=== PATIENT | female | born 1935 | race Caucasian/White ===

== ENCOUNTER 2022-01-04 12:12 | Emergency (ER) | payer MEDICARE ==
[~2022-01-04] VITALS: Ht 154.9 cm; Wt 67.1 kg
[~2022-01-04 12:12] MED LIST: ALEN70 PO; AMLO10 PO; BLOOD PRESSURE MEDS; CHOL10002 PO; Geritol Comple1 EACH PO; HYDCHL12.5 PO; LOSA50 PO; METO50ER PO; Norco 5-325 Ta1 EACH PO; POTCHL20ER PO
== END 2022-01-04 14:56 | disposition home or self-care (01) ==
LOC: ER 12:12
DX: J95.862 Postprocedural seroma of a respiratory system organ or structure following a respiratory system procedure (principal); Y83.8 Other surgical procedures as the cause of abnormal reaction of the patient, or of later complication, without mention of misadventure at the time of the procedure; I10 Essential (primary) hypertension; Z87.891 Personal history of nicotine dependence; Z90.13 Acquired absence of bilateral breasts and nipples
CPT/HCPCS: 76604

== ENCOUNTER 2022-09-21 15:36 | Inpatient (IN) | payer MEDICARE ==
[~2022-09-21] VITALS: Ht 157.5 cm; Wt 63.1 kg
[~2022-09-21 15:36] MED LIST changes: +ASCO500 PO; +Aspir 8181 MG PO; +Dexamethasone4 MG PO; +Hydroxychloroq200 MG PO; +MIRALAX119 G2 PO; +SENN187 PO
[2022-09-21 16:59] LABS: BASOPHILS ABSOLUTE AUTO 0.02 K/mm3 (0.00-0.23); BASOPHILS PERCENT AUTO 0 % (0-2); EOSINOPHILS ABSOLUTE AUTO 0.02 K/mm3 (0.00-0.68); EOSINOPHILS PERCENT AUTO 0 % (0-6); Hematocrit 24.3 % (33.0-51.0); Hemoglobin 7.3 g/dL (11.5-16.0); IMMATURE GRAN ABSOLUTE AUTO 0.11 K/mm3 (0.00-0.10); IMMATURE GRAN PERCENT AUTO 1 % (0-1); LYMPHOCYTES ABSOLUTE AUTO 1.33 K/mm3 (0.84-5.20); LYMPHOCYTES PERCENT AUTO 12 % (21-46); MONOCYTES ABSOLUTE AUTO 0.27 K/mm3 (0.16-1.47); MONOCYTES PERCENT AUTO 2 % (4-13); Mean Corpuscular HGB 27.8 pg (26.0-34.0); Mean Corpuscular Volume 92 fL (80-100); Mean Platelet Volume 8.9 fL (9.1-12.4); NEUTROPHILS ABSOLUTE AUTO 9.76 K/mm3 (1.96-9.15); NEUTROPHILS PERCENT AUTO 85 % (41-73); NRBC ABSOLUTE 0.02 K/mm3 (0.00-0.02); NRBC Auto 0.2 /100 WBC (0.0-0.2); Platelet Count 248 K/mm3 (150-400); RDW Coefficient Variation 15.8 % (11.7-14.2); RDW Standard Deviation 52.7 fL (35.1-46.3); Red Blood Cell Count 2.63 M/mm3 (3.80-5.20); White Blood Cell Count 11.51 K/mm3 (4.00-11.30)
[2022-09-21 17:10] LABS: Magnesium, Blood 2.5 mg/dL (1.6-2.4)
[2022-09-21 17:12] LABS: Alanine Aminotransfer (ALT/SGP 18 U/L (12-78); Albumin, Blood 2.6 g/dL (3.4-5.0); Albumin/Globulin Ratio 0.8 (0.8-1.8); Alk Phos 56 U/L (50-136); Anion Gap 8 mmol/L (6-16); Aspartate Aminotrans (AST/SGOT 15 U/L (12-37); Bilirubin, Total <0.1 mg/dL (0.1-1.0); Blood Urea Nitrogen 30 mg/dL (8-24); Bun/Creatinine Ratio 43.7 (12.0-20.0); CO2, Blood 25 mmol/L (21-32); Calcium, Blood 9.1 mg/dL (8.5-10.1); Chloride, Blood 110 mmol/L (98-108); Creatinine, Blood 0.69 mg/dL (0.40-1.00); Globulin, Blood 3.1 g/dL (2.2-4.0); Glomerular Filtration Rate 83 (60-); Glucose, Blood 120 mg/dL (70-99); Potassium, Blood 3.8 mmol/L (3.5-5.5); Sodium, Blood 143 mmol/L (136-145); Total Protein, Blood 5.7 g/dL (6.4-8.2)
[2022-09-21 20:02] LABS: International Normalized Ratio 0.96; Prothrombin Time Results 10.1 Sec (9.7-11.5)
[2022-09-21] MEDS ORDERED: OMEP20ER PO (21:24)
[2022-09-21] MEDS ORDERED: PANT40 PO (21:25)
[2022-09-21] MEDS ORDERED: NYSTOP15 GM TOP (21:26)
[2022-09-21 22:15] VITALS: BP 164/63
[2022-09-22 01:54] LABS: Bun/Creatinine Ratio 36.5 (12.0-20.0); Calcium, Blood 8.3 mg/dL (8.5-10.1); Creatinine, Blood 0.58 mg/dL (0.40-1.00); Magnesium, Blood 2.1 mg/dL (1.6-2.4)
[2022-09-22 02:15] LABS: Hemoglobin 7.5 g/dL (11.5-16.0); NRBC ABSOLUTE 0.02 K/mm3 (0.00-0.02); NRBC Auto 0.2 /100 WBC (0.0-0.2)
[2022-09-22 02:21] LABS: BASOPHILS ABSOLUTE AUTO 0.03 K/mm3 (0.00-0.23); BASOPHILS PERCENT AUTO 0 % (0-2); EOSINOPHILS ABSOLUTE AUTO 0.19 K/mm3 (0.00-0.68); EOSINOPHILS PERCENT AUTO 2 % (0-6); Hematocrit 24.5 % (33.0-51.0); IMMATURE GRAN ABSOLUTE AUTO 0.11 K/mm3 (0.00-0.10); IMMATURE GRAN PERCENT AUTO 1 % (0-1); LYMPHOCYTES ABSOLUTE AUTO 1.85 K/mm3 (0.84-5.20); LYMPHOCYTES PERCENT AUTO 19 % (21-46); MONOCYTES ABSOLUTE AUTO 0.49 K/mm3 (0.16-1.47); MONOCYTES PERCENT AUTO 5 % (4-13); Mean Corpuscular HGB Conc 30.6 g/dL (31.5-36.5); Mean Corpuscular Volume 91 fL (80-100); Mean Platelet Volume 9.1 fL (9.1-12.4); NEUTROPHILS ABSOLUTE AUTO 7.35 K/mm3 (1.96-9.15); NEUTROPHILS PERCENT AUTO 73 % (41-73); Platelet Count 250 K/mm3 (150-400); RDW Coefficient Variation 15.4 % (11.7-14.2); RDW Standard Deviation 51.3 fL (35.1-46.3); Red Blood Cell Count 2.68 M/mm3 (3.80-5.20); White Blood Cell Count 10.02 K/mm3 (4.00-11.30)
[2022-09-22 03:43] VITALS: BP 160/69
--- NOTE | 2022-09-22 03:45 | NUR ---
CALL FROM TELEMETRY AT ABOUT 0330 THAT PT DIPPED DOWN TO ABOUT ~39 BPM FOR SEVERAL BEATS. PT SLEEPING IN BED AT TIME. CALL AGAIN A FEW MINUTES LATER THAT PT WAS DOWN TO 37 BPM. PT WAS SLEEPING PEACEFULLY AT THE TIME. WOKE HER UP, TOOK SET OF VITALS. ALL VITALS WNL, HR AT ~52 BPM. PT DENIED ANY PAIN AND REPORTED BEING COMFORTABLE AT THE TIME. REMAINS PLEASANT, MENTATION UNCHANGED. WILL CONTINUE TO MONITOR.
--- NOTE | 2022-09-22 04:43 | NUR ---
PT ARRIVED ON UNIT EARLY IN SHIFT. EXCEEDINGLY PLEASANT, AOX2-3. COOPERATIVE WITH CARE. STEADY 1-PERSON ASSIST WITH GAIT BELT. RISK OF SYNCOPAL EPISODE REQUIRING SLOW PACE AND EXTRA CAUTION ALTHOUGH PT HAS HABIT OF WALKING VERY QUICKLY. PT HAS HAD KVO NS RUNNING THROUGH CENTRAL PORT THROUGHOUT THE MORNING. DOES NOT DRAW BLOOD. HAS CONTINUED TO DENY ANY FORM OF PAIN OUTSIDE OF MILD HEADACHE WHICH WAS ALLEVIATED WITH TYLENOL. TELE ON. 1 EVENT OF BRADYCARDIA EARLY THIS MORNING, SEE RELATED NOTE FOR DETAILS. SHIFT HAS OTHERWISE BEEN UNREMARKABLE. PT IS COMFORTABLE IN BED AND HAS SLEPT THROUGH MOST OF SHIFT. BED LOCKED IN LOWEST POSITION. CALL LIGHT LEFT WITHIN REACH.
--- NOTE | 2022-09-22 05:52 | NUR ---
AT 0548 CALL FROM TELE THAT PT HAD PAUSE ON TELE THAT LASTED 2.03 SECONDS. WOKE PT WHO WAS SLEEPING. TOTALLY ASYMPTOMATIC. PT FEELS RELAXED, HAS BEEN SLEEPING PEACEFULLY. SPOKE BRIEFLY WITH EMILY CARSON RN ABOUT THIS EVENT + BRIEF EPISODES OF ASCENCION THIS MORNING. NO NEED FOR FURTHER ACTION AT THIS TIME. WILL CONTINUE TO MONITOR.
[2022-09-22 07:30] LABS: BASOPHILS ABSOLUTE AUTO 0.02 K/mm3 (0.00-0.23); BASOPHILS PERCENT AUTO 0 % (0-2); EOSINOPHILS ABSOLUTE AUTO 0.26 K/mm3 (0.00-0.68); EOSINOPHILS PERCENT AUTO 3 % (0-6); Hematocrit 23.3 % (33.0-51.0); Hemoglobin 7.1 g/dL (11.5-16.0); IMMATURE GRAN ABSOLUTE AUTO 0.08 K/mm3 (0.00-0.10); IMMATURE GRAN PERCENT AUTO 1 % (0-1); LYMPHOCYTES ABSOLUTE AUTO 1.55 K/mm3 (0.84-5.20); LYMPHOCYTES PERCENT AUTO 17 % (21-46); MONOCYTES ABSOLUTE AUTO 0.47 K/mm3 (0.16-1.47); MONOCYTES PERCENT AUTO 5 % (4-13); Mean Corpuscular HGB 27.6 pg (26.0-34.0); Mean Corpuscular HGB Conc 30.5 g/dL (31.5-36.5); Mean Corpuscular Volume 91 fL (80-100); Mean Platelet Volume 8.6 fL (9.1-12.4); NEUTROPHILS ABSOLUTE AUTO 6.86 K/mm3 (1.96-9.15); NEUTROPHILS PERCENT AUTO 74 % (41-73); NRBC ABSOLUTE 0.02 K/mm3 (0.00-0.02); NRBC Auto 0.2 /100 WBC (0.0-0.2); Platelet Count 234 K/mm3 (150-400); RDW Coefficient Variation 15.3 % (11.7-14.2); RDW Standard Deviation 50.3 fL (35.1-46.3); Red Blood Cell Count 2.57 M/mm3 (3.80-5.20); White Blood Cell Count 9.24 K/mm3 (4.00-11.30)
[2022-09-22] MEDS ORDERED: DECADRON4 M1 PO (08:24)
[2022-09-22 08:34] VITALS: BP 175/76
[2022-09-22 12:16] LABS: Percent Saturation 6.2 % (15.0-50.0)
[2022-09-22 13:09] LABS: Source, Urine Clean Catch
[2022-09-22 13:12] LABS: Hematocrit 25.6 % (33.0-51.0); Hemoglobin 7.8 g/dL (11.5-16.0)
[2022-09-22 13:23] LABS: Appearance, Urine Clear (Clear); Bilirubin, Urine Neg (Neg); Blood, Urine Neg (Neg); Color, Urine Yellow (P-Yellow); Glucose Qualitative, Urine Neg (Neg); Ketones, Urine Neg (Neg); Leukocyte Esterase, Urine Neg (Neg); Nitrite, Urine Neg (Neg); Protein, Urine Neg (Neg); Urobilinogen, Urine NORM (Normal); pH, Urine 6.5 (5.0-8.0)
[2022-09-22 17:42] VITALS: BP 147/62
--- NOTE | 2022-09-22 18:09 | NUR ---
DAYSHIFT SUMMARY Patient c/o severe pain d/t migrain & reported sharp pain behind right eye. Tylenol ineffective, Oxycodone effective for pain. Patient sleeping most of the day. Patient did work with therapy today. No bleeding noted in urine or stool today. Vitals stable, no other concerns at this time. Will continue plan of care.
[2022-09-22 20:30] VITALS: BP 145/50
--- NOTE | 2022-09-23 03:53 | NUR ---
SHIFT HAS BEEN UNREMARKABLE. PT MEDICATED FOR HEADACHE EARLY THIS MORNING. OTHERWISE HAS BEEN SLEEPING IN BED COMFORTABLY. KVO NS RUNNING THROUGH CENTRAL PORT THROUGHOUT SHIFT. STEADY 1-PERSON ASSIST TO BATHROOM. EXCEEDINGLY PLEASANT AND COOPERATIVE WITH CARE. BED LOCKED IN LOWEST POSITION. CALL LIGHT LEFT WITHIN REACH.
[2022-09-23 05:23] VITALS: BP 181/76
[2022-09-23 05:45] LABS: BASOPHILS ABSOLUTE AUTO 0.02 K/mm3 (0.00-0.23); BASOPHILS PERCENT AUTO 0 % (0-2); EOSINOPHILS ABSOLUTE AUTO 0.15 K/mm3 (0.00-0.68); EOSINOPHILS PERCENT AUTO 1 % (0-6); Hematocrit 23.4 % (33.0-51.0); Hemoglobin 7.4 g/dL (11.5-16.0); IMMATURE GRAN ABSOLUTE AUTO 0.12 K/mm3 (0.00-0.10); IMMATURE GRAN PERCENT AUTO 1 % (0-1); LYMPHOCYTES ABSOLUTE AUTO 1.83 K/mm3 (0.84-5.20); LYMPHOCYTES PERCENT AUTO 18 % (21-46); MONOCYTES ABSOLUTE AUTO 0.45 K/mm3 (0.16-1.47); MONOCYTES PERCENT AUTO 4 % (4-13); Mean Corpuscular HGB 28.1 pg (26.0-34.0); Mean Corpuscular HGB Conc 31.6 g/dL (31.5-36.5); Mean Corpuscular Volume 89 fL (80-100); NEUTROPHILS ABSOLUTE AUTO 7.84 K/mm3 (1.96-9.15); NEUTROPHILS PERCENT AUTO 75 % (41-73); NRBC ABSOLUTE 0.02 K/mm3 (0.00-0.02); NRBC Auto 0.2 /100 WBC (0.0-0.2); Platelet Count 233 K/mm3 (150-400); RDW Coefficient Variation 15.2 % (11.7-14.2); RDW Standard Deviation 48.9 fL (35.1-46.3); Red Blood Cell Count 2.63 M/mm3 (3.80-5.20); White Blood Cell Count 10.41 K/mm3 (4.00-11.30)
[2022-09-23 06:04] LABS: Albumin, Blood 2.4 g/dL (3.4-5.0); Anion Gap 5 mmol/L (6-16); Blood Urea Nitrogen 13 mg/dL (8-24); Bun/Creatinine Ratio 23.3 (12.0-20.0); CO2, Blood 26 mmol/L (21-32); Calcium, Blood 8.4 mg/dL (8.5-10.1); Chloride, Blood 112 mmol/L (98-108); Creatinine, Blood 0.56 mg/dL (0.40-1.00); Glomerular Filtration Rate 88 (60-); Glucose, Blood 90 mg/dL (70-99); Phosphorus, Blood 2.1 mg/dL (2.5-4.9); Potassium, Blood 3.3 mmol/L (3.5-5.5); Sodium, Blood 143 mmol/L (136-145)
[2022-09-23 06:46] VITALS: BP 144/59
[2022-09-23 07:29] VITALS: BP 142/70
[2022-09-23 15:38] VITALS: BP 120/53
--- NOTE | 2022-09-23 18:05 | NUR ---
SHIFT SUMMARY: Pt remains A&O X3 this shift. Toradol effective for headaches along with warm therapy. Up to bathroom with 1 person ast. Skin tear to right buttocks noted and photos taken. Diet advanced as tolerated. BM today. DNR orders noted, purple band placed on pt. Bed in low position and locked. Call light in reach. Will continue to follow this shift.
--- NOTE | 2022-09-23 18:07 | NUR ---
Care conference: After meeting with pt and her son in law at bedside, I had an extended t/c with pt's 2 daughters Rosalina and Sabra. Once they understood there is no major GI bleed, and the anemia isn't greatly improved with both PRBC's and iron infusion, they agree to pursue hospice. They would like to give it "one more day", and see if pt's anemia is much improved tomorrow, and if not, prefer hospice discharge. The pt told me today, she is not comfortable making any of those decisions, and denies having the capacity to make them. She referred me to her daughters. The daughters also mentioned pt has a POLST on the fridge with pt's wishes, and she is DNR with limited interventions. They are bringing a copy for our records. Dr. Silva gave order to change code status to DNR, and to advance diet as tolerated. So, depending on the lab tomorrow, likely pt will d/c home with hospice. They state they want "[facility]", as this is the agency they have both worked with in the past. Report given to Carolann Sr RN.
--- NOTE | 2022-09-23 18:22 | NUR ---
THIS EXHIBITOR SALES HAS REVIEWED AND AGREES WITH ALL NOTES AND ASSESSMENTS BY BERTHA SILVER.
[2022-09-23 19:42] VITALS: BP 127/60
[2022-09-24 02:23] VITALS: BP 165/55
--- NOTE | 2022-09-24 06:09 | NUR ---
AO, VSS, PLEASANT, SBA TO TOILET WITH WALKER AND GB. PAIN MODERATELY CONTROLLED WITH TRAMADOL AND TYLENOL. HEAT ALSO HELPS RELIEVE PAIN. PT REQUESTED TORADOL, NOT ORDERED DUE TO ANEMIA/RISK OF GI BLEED. UNEVENTFUL NIGHT.
[2022-09-24 07:47] VITALS: BP 171/80
[2022-09-24 07:50] VITALS: BP 145/81
[2022-09-24 07:52] VITALS: BP 113/69
[2022-09-24 07:55] LABS: Hematocrit 22.8 % (33.0-51.0); Hemoglobin 7.2 g/dL (11.5-16.0)
[2022-09-24 15:17] VITALS: BP 141/70
--- NOTE | 2022-09-24 16:34 | NUR ---
SHIFT SUMMARY: Pt remains A&O this shift. Headache pain controlled with current regime. Slept most of the shift, verbally aroused. No c/o verbalized. Mediport with NS at TKO infusing. Up to bathroom with 1 person ast today. Will continue to monitor this shift.
--- NOTE | 2022-09-24 17:29 | NUR ---
THIS MAXILLOFACIAL PROSTHODONTIST HAS REVIEWED AND AGREES WITH ALL NOTES AND ASSESSMENTS BY BERTHA SILVER.
[2022-09-24 19:51] VITALS: BP 133/68
[2022-09-25 04:44] VITALS: BP 164/78
[2022-09-25 04:48] LABS: Hematocrit 23.9 % (33.0-51.0); Hemoglobin 7.4 g/dL (11.5-16.0); Mean Corpuscular HGB 27.8 pg (26.0-34.0); Mean Corpuscular Volume 90 fL (80-100); Mean Platelet Volume 8.9 fL (9.1-12.4); NRBC ABSOLUTE 0.05 K/mm3 (0.00-0.02); NRBC Auto 0.4 /100 WBC (0.0-0.2); Platelet Count 258 K/mm3 (150-400); RDW Coefficient Variation 15.3 % (11.7-14.2); RDW Standard Deviation 49.6 fL (35.1-46.3); Red Blood Cell Count 2.66 M/mm3 (3.80-5.20); White Blood Cell Count 12.53 K/mm3 (4.00-11.30)
[2022-09-25 05:07] LABS: Albumin, Blood 2.3 g/dL (3.4-5.0); Anion Gap 5 mmol/L (6-16); Blood Urea Nitrogen 11 mg/dL (8-24); Bun/Creatinine Ratio 17.6 (12.0-20.0); CO2, Blood 26 mmol/L (21-32); Calcium, Blood 8.8 mg/dL (8.5-10.1); Chloride, Blood 112 mmol/L (98-108); Creatinine, Blood 0.63 mg/dL (0.40-1.00); Glomerular Filtration Rate 85 (60-); Glucose, Blood 93 mg/dL (70-99); Phosphorus, Blood 2.4 mg/dL (2.5-4.9); Potassium, Blood 3.1 mmol/L (3.5-5.5); Sodium, Blood 143 mmol/L (136-145)
[2022-09-25 07:27] VITALS: BP 155/69
[2022-09-25 11:50] VITALS: BP 138/82
[2022-09-25] MEDS ORDERED: TRAM50 PO (12:43)
[2022-09-25] MEDS ORDERED: MICONAZOLE NIT130 GM TOP (12:43)
[2022-09-25] MEDS ORDERED: ACET500 PO (12:44)
--- NOTE | 2022-09-25 14:23 | NUR ---
DC- PT LEFT WITH DAUGHTER FOR HOME WITH HOSPICE. PT LEFT IN WC WITH ALL BELONGINGS. [facility] HARD SCRIPT GIVEN TO PT/DAUGHTER.
== END 2022-09-25 13:53 | disposition hospice, home (50) | DRG 812 ==
LOC: ER 15:36 → MEDS 15:37 → ENPENDDIS 09-25 11:44 → MEDS 09-25 13:53
PROVIDERS: Internal Medicine; Physician Assistant; Student in an Organized Health Care Education/Training Program; ADMIT Student in an Organized Health Care Education/Training Program
PROC: 30233N1 Transfusion of Nonautologous Red Blood Cells into Peripheral Vein, Percutaneous Approach (ICD-10-PCS; principal; 2022-09-23)
DX: D50.0 Iron deficiency anemia secondary to blood loss (chronic) (principal); K92.2 Gastrointestinal hemorrhage, unspecified; R55 Syncope and collapse; E66.9 Obesity, unspecified; L89.151 Pressure ulcer of sacral region, stage 1; Z66 Do not resuscitate; I10 Essential (primary) hypertension; Z51.5 Encounter for palliative care; R00.1 Bradycardia, unspecified; R79.89 Other specified abnormal findings of blood chemistry; E86.0 Dehydration; E83.39 Other disorders of phosphorus metabolism; E87.6 Hypokalemia; Z79.899 Other long term (current) drug therapy; Z79.82 Long term (current) use of aspirin; Z85.841 Personal history of malignant neoplasm of brain; Z87.891 Personal history of nicotine dependence; Z90.13 Acquired absence of bilateral breasts and nipples; Z90.2 Acquired absence of lung [part of]; Z98.890 Other specified postprocedural states; Z68.24 Body mass index [BMI] 24.0-24.9, adult
CPT/HCPCS: 36415; 71045; 80048; 80053; 80069; 81003; 82272; 82607; 82728; 82746; 83540; 83550; 83735; 83880; 84145; 84484; 85014; 85018; 85025; 85027; 85610; 86850; 86900; 86901; 93005; 93010; 96361; 96374; 96375; 96376; 97116; 97162; 97166; 97535; 99285-25; A9270; C9113; G0378; J0360; J1885; J2916; J7030; J7050; J7060